=== PATIENT | female | born 1990 | race American Indian/Alaskan Native ===

== ENCOUNTER 2017-04-01 12:30 | Outpatient (CLI) | payer MEDICAID ==
[2017-04-01 12:58] VITALS: BP 112/71
[2017-04-01] MEDS ORDERED: LACTATED RINGERS 500 ML IV ONE (13:16)
[2017-04-01 13:49] LABS: Bacteria,Urine 1+ /HPF (Negative); Bilirubin,Urine NEG (Negative); Blood,Urine NEG (Negative); Ketones,Urine 80 mg/dL (Negative); Leukocyte Esterase,Urine TR (Negative); Mucus,Urine 2+ /HPF; Nitrite,Urine NEG (Negative)
[2017-04-01] MEDS ORDERED: CELESTONE SOLUSPAN IM SCH (16:15)
== END 2017-04-01 15:42 | disposition home or self-care (01) ==
LOC: TRG 12:30
PROVIDERS: ATTEND Obstetrics & Gynecology
DX: O47.03 False labor before 37 completed weeks of gestation, third trimester (principal); Z3A.30 30 weeks gestation of pregnancy
CPT/HCPCS: 59025; 81001; J0702

== ENCOUNTER 2017-04-02 14:35 | Outpatient (CLI) | payer MEDICAID ==
[2017-04-02] MEDS ORDERED: CELESTONE SOLUSPAN IM ONE (14:41)
== END 2017-04-02 14:50 | disposition home or self-care (01) ==
LOC: TRG 14:35
DX: O47.03 False labor before 37 completed weeks of gestation, third trimester (principal); Z3A.30 30 weeks gestation of pregnancy
CPT/HCPCS: 96372; J0702

== ENCOUNTER 2017-05-17 15:18 | Emergency (ER) | payer MEDICAID ==
[2017-05-17] MEDS ORDERED: BENADRYL PO ONE ×2 (18:51→18:52)
[2017-05-17] MEDS ORDERED: CATAPRES ONE (18:51)
[2017-05-17] MEDS ORDERED: CATAPRES PO ONE (18:51)
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
[2017-05-17 19:50] LABS: Basophils % (Auto) 0.4 % (0.0-1.8); Eosinophils % (Auto) 0.5 % (0.0-4.3); Hematocrit 34.2 % (30.3-42.9); Hemoglobin 11.7 gm/dl (10.1-14.3); Mean Corpuscular HGB Conc 34 % (30-34); Mean Corpuscular Volume 73 fl (79-97); Platelet Count 331 K/mm3 (140-440); Red Blood Count 4.66 M/mm3 (3.65-5.03); White Blood Count 8.1 K/mm3 (4.5-11.0)
[2017-05-17 19:51] LABS: Mean Corpuscular Hemoglobin 25 pg (28-32); Red Cell Distribution Width 24.5 % (13.2-15.2)
[2017-05-17 20:05] LABS: Alanine Aminotransferase 6 units/L (7-56); Albumin 3.5 g/dL (3.9-5); Albumin/Globulin Ratio 0.9 %; Alkaline Phosphatase 60 units/L (35-129); Anion Gap 16 mmol/L; BUN/Creatinine Ratio 20; Blood Urea Nitrogen 8 mg/dL (7-17); Calcium 8.6 mg/dL (8.4-10.2); Carbon Dioxide 24 mmol/L (22-30); Glucose 94 mg/dL (65-100); Potassium 3.6 mmol/L (3.6-5.0); Sodium 138 mmol/L (137-145); Total Protein 7.2 g/dL (6.3-8.2)
--- NOTE | 2017-05-17 21:14 | Cat Scan Report ---
FINAL REPORT PROCEDURE: CT FACIAL BONES W CON TECHNIQUE: Computerized tomography of the facial bones and soft tissues with axial and coronal sections was performed from the cranial aspect of the frontal sinuses to the caudal portion of the mandible following the IV injection of iodinated nonionic contrast. HISTORY: facial swelling COMPARISON: No prior studies are available for comparison. FINDINGS: Bones: No significant abnormality. Paranasal sinuses: Clear. Soft tissues: Soft tissue swelling of the nose and upper lip on the right more than the left. There is phlegmonous change. No abscess or focal fluid collection.. Abnormal enhancement: None. Other: There is poor dentition with numerous missing teeth and multiple cavities. IMPRESSION: Soft tissue swelling of the face. No abscess
[2017-05-17] MEDS ORDERED: CLEOCIN 600 MG/50 mL 600 MG/50 ML BAG IV ONE (22:18)
[2017-05-17] MEDS ORDERED: APRESOLINE IV ONE (22:19)
[2017-05-17 23:07] VITALS: BP 127/97
== END 2017-05-17 23:34 | disposition home or self-care (01) ==
LOC: ED 15:18
DX: K02.9 Dental caries, unspecified (principal); R22.0 Localized swelling, mass and lump, head; I10 Essential (primary) hypertension; J45.909 Unspecified asthma, uncomplicated; Z88.0 Allergy status to penicillin; Z88.8 Allergy status to other drugs, medicaments and biological substances
CPT/HCPCS: 36415; 70487; 80053; 82140; 85025; 87040; 96365; 99284; J0360; Q9967